=== PATIENT | male | born 1950 | race Caucasian/White ===

== ENCOUNTER 2018-09-11 00:43 | Outpatient (CLI) | payer BC ==
--- NOTE | 2018-09-11 11:40 | RAD ---
Chest 2 views HISTORY: Preop. FINDINGS: No comparison. Cardiac silhouette and pulmonary vasculature are unremarkable. Mediastinum i s midline with postoperative changes of the mid, central mediastinum. Lungs are prominently hyperinflated with flattening of the hemidiaphragms. Peripheral interstitial scarring is symmetric di ffuse. Scarring and tenting of the lung bases, prominent at the lateral costophrenic angles on the frontal v iew. No pleural fluid is evident the lateral view. IMPRESSION: Severe emphysematous disease.
[2018-09-11 12:08] LABS: #Basophils 0.1 thou/uL (0.0-0.2); #Eosinphils 0.3 thou/uL (0.0-0.7); #Lymphocytes 1.2 thou/uL (1.20-3.40); #Monocytes 0.5 thou/uL (0.11-0.59); #Neutrophils 2.3 thou/uL (1.40-6.50); %Basophils 1.3 % (0.0-1.0); %Eosinophils 6.5 % (0.0-10.0); %Lymphocytes 28.7 % (21.0-51.0); %Monocytes 10.8 % (0.0-10.0); %Neutrophils 52.7 % (42.0-75.0); Hemoglobin 13.7 g/dL (14.0-18.0); Mean Corpuscular HGB CONC 31.8 g/dL (32.0-36.0); Mean Corpuscular Hemoglobin 28.5 pg (27.0-31.0); Mean Corpuscular Volume 89.7 fL (78.0-98.0); Mean Platelet Volume 8.9 fL (7.4-10.4); Platelet Count 172 thou/uL (130-400); RBC Distribution Width 11.8 % (11.5-14.5); White Blood Cell (WBC) Count 4.3 thou/uL (4.8-10.8)
[2018-09-11 12:26] LABS: Anion Gap 13 mmol/L (10-20); BUN (Urea Nitrogen) 24 mg/dL (8.4-25.7); Calc. Creatinine Clearance 0 mL/min (70-130); Calcium 9.1 mg/dL (7.8-10.44); Carbon Dioxide 25 mmol/L (23-31); Chloride 107 mmol/L (98-107); Estimated GFR-MDRD 62; Glucose 87 mg/dL (80-115); Potassium 4.5 mmol/L (3.5-5.1); Sodium 140 mmol/L (136-145)
--- NOTE | 2018-09-13 21:16 | EKG ---
Test Reason : Blood Pressure : / mmHG Vent. Rate : 055 BPM Atrial Rate : 055 BPM P-R Int : 156 ms QRS Dur : 146 ms QT Int : 486 ms P-R-T Axes : 090 -66 026 degrees QTc Int : 464 ms Sinus bradycardia Right bundle branch block Left anterior fascicular block Bifascicular block Left ventricular hypertrophy with QRS widening Abnormal ECG No previous ECGs available Confirmed by Jose URBANO ([id number]) on 09/13/2018 9:15:58 PM Referred By: SCHUYLER Confirmed By:Jose URBANO
== END 2018-09-11 00:44 | disposition home or self-care (01) ==
LOC: LABBT 00:43
PROVIDERS: ATTEND Specialist
DX: Z01.818 Encounter for other preprocedural examination (principal); K40.90 Unilateral inguinal hernia, without obstruction or gangrene, not specified as recurrent; J43.9 Emphysema, unspecified
CPT/HCPCS: 71046; 80048; 85025; 93005; 93010

== ENCOUNTER 2018-09-19 05:47 | Day surgery (SDC) | payer BC ==
[2018-09-11 10:33] VITALS: BMI 19.1
[2018-09-19] MEDS ORDERED: Ondansetron PF 4 MG/2 ML Vial ONE (16:43)
[2018-09-19] MEDS ORDERED: Dexamethasone 20 MG/5 ML VIAL ONE (16:43)
[2018-09-19] MEDS ORDERED: Rocuronium Bromide 10 MG/ML (10ML VIAL) ONE (16:43)
[2018-09-19] MEDS ORDERED: Lidocaine 2% PF 5 ML VIAL ONE (16:43)
[2018-09-19] MEDS ORDERED: Glycopyrrolate 0.2 MG/ML 5 ML SYRINGE ONE (16:43)
[2018-09-19] MEDS ORDERED: PROPOFOL 200 MG/20 ML VIAL ONE (16:43)
--- NOTE | 2018-09-20 10:16 | OP ---
DATE OF PROCEDURE: 09/19/2018 PREOPERATIVE DIAGNOSIS: Left inguinal hernia. POSTOPERATIVE DIAGNOSIS: Left inguinal hernia, indirect. OPERATION PERFORMED: Robotic assisted repair of left inguinal hernia with 3DMax mesh patch. ANESTHESIA: General endotracheal. INDICATIONS: The patient is a 68-year-old white male. He presents with an obvious left inguinal hernia. He is taken to the operating room at this time for repair. DESCRIPTION OF OPERATION: Informed consent was obtained. He was taken to the operating room, where general endotracheal anesthesia was obtained with the patient in supine position. A Ding catheter was placed, abdomen was prepped with ChloraPrep and draped in sterile fashion. Local anesthetic was infiltrated using 0.25% Marcaine with epinephrine. A transverse supraumbilical incision was created and Veress needle was passed through this into the peritoneal cavity and pneumoperitoneum was established using carbon dioxide up to pressure of 15 mmHg. An 11-mm trocar port was passed through the same incision and a robotic camera was passed through this port. Under direct vision, 2 additional 8 mm robotic ports were placed on either side of midline at the supraumbilical level. The robot was docked to the 3 ports as well as the camera and the operation was continued from the robotic console. Internal inspection revealed evidence of previous right inguinal hernia repair. There were violetta and apparent mesh visualized in the right groin. There was no evidence of recurrence. Inspection of the left side revealed an obvious indirect inguinal hernia. It appeared to be relatively medial in terms of proximity to the median umbilical ligament, however, it was clearly lateral to the epigastric vessels. A transverse peritoneal incision was created several centimeters superior to the visualized hernia. Preperitoneal dissection was carried inferiorly. Medially, the dissection was carried down to the pubic tubercle and Conor ligament. Laterally, the iliopubic tract was dissected laterally to leave adequate room for the mesh placement. In the center of the dissection, the hernia sac was carefully dissected off the underlying cord structures. The vas deferens was clearly visualized and seen to bifurcate medially. The remainder of the cord structures were visualized and protected. The peritoneum was carefully dissected off the cord structures to give wide clearance inferiorly. The hernia defect was clearly visualized. It did enter through the abdominal wall just lateral to the epigastric vessels, but tracked medially from there. A large left 3DMax mesh patch was obtained and placed in the preperitoneal space. It was secured in place with 3 interrupted sutures of 2-0 Vicryl, placing one to the pubic tubercle and two to the anterior abdominal wall, one medial and one lateral to the epigastric vessels. The tail tucked nicely into the pocket in the preperitoneum. The peritoneum was then closed using a running suture of 3-0 Stratafix. The fascial defect at the supraumbilical incision was closed with 0 Vicryl suture using a GraNee needle. All ports and instruments were removed under direct vision. Pneumoperitoneum was carefully evacuated. A 0.25% Marcaine with epinephrine was infiltrated into each port site. Skin edges were approximated with 4-0 Monocryl subcuticular suture. Dermabond was placed externally. There were no complications during the procedure. Blood loss was essentially none. The patient tolerated the procedure well and was taken to the recovery room in stable condition. Job ID: [id number]
== END 2018-09-19 13:30 | disposition home or self-care (01) ==
LOC: SDC 05:47
PROVIDERS: ATTEND Specialist
PROC: 0YU64JZ Supplement Left Inguinal Region with Synthetic Substitute, Percutaneous Endoscopic Approach (ICD-10-PCS; principal; 2018-09-19)
DX: K40.90 Unilateral inguinal hernia, without obstruction or gangrene, not specified as recurrent (principal); D64.9 Anemia, unspecified; M19.90 Unspecified osteoarthritis, unspecified site; E78.00 Pure hypercholesterolemia, unspecified; Z87.891 Personal history of nicotine dependence; Z98.890 Other specified postprocedural states; Z88.8 Allergy status to other drugs, medicaments and biological substances; Z79.82 Long term (current) use of aspirin; Z79.899 Other long term (current) drug therapy
CPT/HCPCS: C1781; J1100; J2001; J2405; J2704

== ENCOUNTER 2023-02-15 09:05 | Inpatient (IN) | payer OTHER, MEDICARE ==
[2023-02-15 09:27] LABS: #Eosinphils 0.1 thou/uL (0.0-0.7); #Monocytes 0.5 thou/uL (0.11-0.59); #Neutrophils 3.1 thou/uL (1.40-6.50); %Basophils 0.9 % (0.0-1.0); %Lymphocytes 19.5 % (21.0-51.0); %Monocytes 10.3 % (0.0-10.0); %Neutrophils 66.1 % (42.0-75.0); Hematocrit 41.3 % (42.0-52.0); Hemoglobin 13.6 g/dL (14.0-18.0); Mean Corpuscular HGB CONC 32.9 g/dL (32.0-36.0); Mean Corpuscular Hemoglobin 29.8 pg (27.0-31.0); Mean Corpuscular Volume 90.6 fl (78.0-98.0); Mean Platelet Volume 11.1 fL (7.4-10.4); Platelet Count 160 10x3/uL (130-400); RBC Distribution Width 13.5 % (11.5-14.5); Red Blood Cell (RBC) Count 4.56 mill/uL (4.70-6.10); White Blood Cell (WBC) Count 4.7 10x3/uL (4.8-10.8)
[2023-02-15 09:44] LABS: INR-International Normal Ratio 0.9; Prothrombin Time 12.7 sec (12.0-14.7)
[2023-02-15 09:45] LABS: PTT 30.4 sec (22.9-36.1)
[2023-02-15] MEDS ORDERED: Tenecteplase 50 MG ONE (09:45)
[2023-02-15 09:57] LABS: ALT (SGPT) 12 U/L (8-55); AST (SGOT) 27 U/L (5-34); Albumin 4.4 g/dL (3.4-4.8); Alkaline Phosphatase 87 U/L (40-110); Anion Gap 12 mmol/L (10-20); BUN (Urea Nitrogen) 28 mg/dL (8.4-25.7); Bilirubin, Total 0.7 mg/dL (0.2-1.2); Calc. Creatinine Clearance 0 mL/min (70-130); Carbon Dioxide 27 mmol/L (23-31); Chloride 105 mmol/L (98-107); Estimated GFR 52; Globulin 2.5 g/dL (2.4-3.5); Glucose 89 mg/dL (83-110); Potassium 4.1 mmol/L (3.5-5.1); Protein, Total 6.9 g/dL (5.8-8.1); Sodium 140 mmol/L (136-145)
[2023-02-15 09:58] LABS: Troponin I Less than 0.010 ng/mL (< 0.028)
[2023-02-15] MEDS ORDERED: hydrALAZINE 20 MG/ML VIAL SLOW IVP PRN (11:08)
[2023-02-15] MEDS ORDERED: Labetalol HCl 100 MG/20 ML VIAL SLOW IVP PRN (11:08)
[2023-02-15] MEDS ORDERED: niCARdipine 25 MG in Sodium Chloride 0.9% 250 ML 250 ML IVPB PRN (11:08)
[2023-02-15] MEDS ORDERED: Sodium Chloride 0.9% 1,000 ML IV SCH (11:30)
[2023-02-15] MEDS ORDERED: Iopamidol-370 76% 500 ML MDV (1 ML CHARGE) ONE (13:06)
[2023-02-15] MEDS: Communication Order-Pharmacy FS SCH (13:34)
[2023-02-15] MEDS: Atorvastatin Calcium 40 MG TAB PO SCH (21:25)
[2023-02-16] MEDS ORDERED: Sodium Chloride 0.9% 500 ML IV SCH (01:15)
[2023-02-16 07:44] VITALS: BMI 17.7
[2023-02-16] MEDS: Nicotine 14 MG PATCH TOP SCH (09:08)
[2023-02-16] MEDS: Aspirin 325 mg Enteric Coated Tablet PO SCH (10:31)
[2023-02-16] MEDS: Communication Order-Pharmacy FS SCH (10:46)
[2023-02-16] MEDS ORDERED: Albuterol 200 PUFF (6.7GM INHALER) INH PRN (12:56)
[2023-02-16] MEDS: Atorvastatin Calcium 40 MG TAB PO SCH (21:35)
[2023-02-17] MEDS: Nicotine 14 MG PATCH TOP SCH (08:39)
[2023-02-17] MEDS: Aspirin 325 mg Enteric Coated Tablet PO SCH (08:50)
[2023-02-17] MEDS ORDERED: Tamsulosin HCl 0.4 MG CAP PO SCH (09:00)
[2023-02-17] MEDS ORDERED: azaTHIOprine 50 MG TAB PO SCH (09:00)
[2023-02-17] MEDS ORDERED: Loratadine/Pseudoephedrine 10/240 mg Tablet PO SCH (09:00)
[2023-02-17] MEDS ORDERED: Cyanocobalamin (Vitamin B-12) 1,000 MCG TAB PO SCH (09:00)
[2023-02-17 09:54] LABS: #Eosinphils 0.2 thou/uL (0.0-0.7); #Monocytes 0.4 thou/uL (0.11-0.59); #Neutrophils 3.9 thou/uL (1.40-6.50); %Basophils 0.5 % (0.0-1.0); %Eosinophils 3.9 % (0.0-10.0); %Monocytes 7.3 % (0.0-10.0); %Neutrophils 70.1 % (42.0-75.0); Hemoglobin 13.2 g/dL (14.0-18.0); Mean Corpuscular HGB CONC 32.2 g/dL (32.0-36.0); Mean Corpuscular Hemoglobin 29.4 pg (27.0-31.0); Mean Corpuscular Volume 91.3 fl (78.0-98.0); Mean Platelet Volume 11.3 fL (7.4-10.4); Platelet Count 153 10x3/uL (130-400); RBC Distribution Width 13.4 % (11.5-14.5); Red Blood Cell (RBC) Count 4.49 mill/uL (4.70-6.10); White Blood Cell (WBC) Count 5.6 10x3/uL (4.8-10.8)
[2023-02-17] MEDS ORDERED: Nicotine 14 MG PATCH TOP SCH (10:00)
[2023-02-17 10:16] LABS: ALT (SGPT) 10 U/L (8-55); AST (SGOT) 24 U/L (5-34); Albumin 4.1 g/dL (3.4-4.8); Alkaline Phosphatase 82 U/L (40-110); Anion Gap 12 mmol/L (10-20); BUN (Urea Nitrogen) 22 mg/dL (8.4-25.7); Bilirubin, Total 0.7 mg/dL (0.2-1.2); Calc. Creatinine Clearance 50 mL/min (70-130); Calcium 8.8 mg/dL (7.8-10.44); Carbon Dioxide 28 mmol/L (23-31); Cardiac Risk 2.9 (Less than 4.5); Chloride 106 mmol/L (98-107); Cholesterol 124 mg/dl (< 200 Desired); Estimated GFR 56; Globulin 2.3 g/dL (2.4-3.5); Glucose 118 mg/dL (83-110); HDL Cholesterol 43 mg/dL (>60 Neg Risk); LDL Cholesterol, Calculated 71 mg/dL; Potassium 4.4 mmol/L (3.5-5.1); Protein, Total 6.4 g/dL (5.8-8.1); Sodium 142 mmol/L (136-145); Triglycerides 51 mg/dL (Less than 150)
[2023-02-17 12:06] VITALS: BP 118/78; TEMP 98.2
[2023-02-17] MEDS: Communication Order-Pharmacy FS SCH (15:27)
[2023-02-18] MEDS ORDERED: FLU VACC QS2023(65UP)/MF59C/PF 60 MCG/0.5 ML SYRINGE IM ONE (09:00)
== END 2023-02-17 16:30 | disposition home or self-care (01) | DRG 62 ==
LOC: ERS 09:05 → CCU 11:26 → 2SE 02-16 16:31
PROVIDERS: ADMIT Internal Medicine; ATTEND Family Medicine
DX: I63.9 Cerebral infarction, unspecified (principal); G81.91 Hemiplegia, unspecified affecting right dominant side; N17.9 Acute kidney failure, unspecified; F17.210 Nicotine dependence, cigarettes, uncomplicated; E78.5 Hyperlipidemia, unspecified; M06.9 Rheumatoid arthritis, unspecified; I10 Essential (primary) hypertension; N40.0 Benign prostatic hyperplasia without lower urinary tract symptoms; Z79.82 Long term (current) use of aspirin; Z79.899 Other long term (current) drug therapy; Z79.51 Long term (current) use of inhaled steroids; Z88.8 Allergy status to other drugs, medicaments and biological substances; Z98.890 Other specified postprocedural states; Z71.6 Tobacco abuse counseling; R29.701 NIHSS score 1
CPT/HCPCS: 36415; 36416; 70450; 70496; 70498; 70551; 80053; 80061; 84484; 85025; 85610; 85730; 93005; 93306; J3101; J7030; J7050; J7500; Q9967